=== PATIENT | male | born 1950 | race African-American/Black ===

== ENCOUNTER 2016-07-18 14:37 | Inpatient (IN) | payer OTHER ==
[2016-07-18 16:05] VITALS: BMI 22.9
--- NOTE | 2016-07-18 18:50 | HP ---
CIWA Score - CIWA Score Nausea/Vomitin Muscle Tremors: 4-Moderate,w/Arms Extend Anxiety: 4-Mod. Anxious/Guarded Agitation: 4-Moderately Restless Paroxysmal Sweats: 2 Orientation: 1-Uncertain about Date Tacttile Disturbances: 0-None Auditory Disturbances: 0-None Visual Disturbances: 0-None Headache: 3-Moderate CIWA-Ar Total Score: 20 Admission ROS BHS - HPI Chief Complaint: WITHDRAWAL SX Allergies/Adverse Reactions: Allergies Allergy/AdvReac Type Severity Reaction Status Date / Time No Known Allergies Allergy Verified 07/18/16 17:22 History of Present Illness: 66 YEARS OLD MALE WITH LONG HISTORY OF ALCOHOL NICOTINE DEPENDENCE, HAS ASTHMA AND HYPERTENSION DENIES MENTAL ILLNESS IS ADMITTED TO DETOX Exam Limitations: No Limitations - Ebola screening Have you traveled outside of the country in the last 21 days: No Have you had contact with anyone from an Ebola affected area: No Have you been sick,other than usual withdrawal symptoms: No Do you have a fever: No - Review of Systems Constitutional: Chills, Loss of Appetite, Changes in sleep, Unintentional Wgt. Loss, Unexplained wgt Loss EENT: reports: Dental Problems (MISSING TEETH) Respiratory: reports: SOB with Exertion Cardiac: reports: No Symptoms Reported GI: reports: Nausea, Poor Appetite, Poor Fluid Intake, Vomiting, Abdominal cramping : reports: No Symptoms Reported Musculoskeletal: reports: Neck Pain (LEFT LATERAL TRUNK - FELL 4 MONTHS AGO) Integumentary: reports: No Symptoms Reported Neuro: reports: Tremors Endocrine: reports: No Symptoms Reported Hematology: reports: No Symptoms Reported Psychiatric: reports: Judgement Intact, Mood/Affect Appropiate Other Systems: Reviewed and Negative Patient History - Patient Medical History Hx Anemia: No Hx Asthma: Yes Hx Chronic Obstructive Pulmonary Disease (COPD): No Hx Cancer: No Hx Cardiac Disorders: No Hx Congestive Heart Failure: No Hx Hypertension: Yes Hx Hypercholesterolemia: No Hx Pacemaker: No HX Cerebrovascular Accident: No Hx Seizures: No Hx Dementia: No Hx Diabetes: No Hx Gastrointestinal Disorders: No Hx Liver Disease: No Hx Genitourinary Disorders: No Hx Sexually Transmitted Disorders: No Hx Renal Disease (ESRD): No Hx Thyroid Disease: No Hx Human Immunodeficiency Virus (HIV): No Hx Hepatitis C: No Hx Depression: No Hx Suicide Attempt: No Hx Bipolar Disorder: No Hx Schizophrenia: No - Patient Surgical History Past Surgical History: Yes Hx Neurologic Surgery: No Hx Cataract Extraction: No Hx Cardiac Surgery: No Hx Lung Surgery: No Hx Breast Surgery: No Hx Breast Biopsy: No Hx Abdominal Surgery: No Hx Appendectomy: No Hx Cholecystectomy: No Hx Genitourinary Surgery: No Hx Orthopedic Surgery: Yes (RIGHT HIP 2012) Anesthesia Reaction: No - PPD History Previous Implant?: Yes Documented Results: Negative w/o proof Implanted On Prior R Admission?: No PPD to be Administered?: Yes - Smoking Cessation Smoking history: Current every day smoker Have you smoked in the past 12 months: Yes Aproximately how many cigarettes per day: 20 Cigars Per Day: 0 Hx Chewing Tobacco Use: No Initiated information on smoking cessation: Yes 'Breaking Loose' booklet given: 07/18/16 - Substance & Tx. History Hx Alcohol Use: Yes Hx Substance Use: Yes Substance Use Type: Alcohol, Marijuana Hx Substance Use Treatment: Yes - Substances Abused Alcohol Route: Oral Frequency: Daily Amount used: LIQUOR- 4 PINTS VOLKA BEER- 1 SIX PACK Age of first use: 15 Date of Last Use: 07/18/16 Family Disease History - Family Disease History Family Disease History: [place]: Mother (), Brother (), Other: Father (), Brother Admission Physical Exam BHS - Vital Signs Vital Signs: Vital Signs - 24 hr 07/18/16 16:02 Temperature 98.1 F Pulse Rate 113 H Respiratory 18 Rate Blood Pressure 124/74 - Physical General Appearance: Yes: Appropriately Dressed, Moderate Distress, Thin ( REFUSES ENSURE), Tremorous, Irritable, Sweating, Anxious HEENTM: Yes: Hearing grossly Normal, Normal ENT Inspection, Normocephalic, Normal Voice Respiratory: Yes: Chest Non-Tender, Lungs Clear, Normal Breath Sounds, No Respiratory Distress, No Accessory Muscle Use Neck: Yes: Supple, Trachea in good position Breast: Yes: Breasts Symetrical Cardiology: Yes: Regular Rhythm, S1, S2, Tachycardia Abdominal: Yes: Non Tender, Soft Genitourinary: Yes: Within Normal Limits Back: Yes: Normal Inspection Musculoskeletal: Yes: full range of Motion, Gait Steady (CANE), Back pain Extremities: Yes: Normal Range of Motion, Non-Tender, Tremors Neurological: Yes: Alert, Motor Strength 5/5 (CANE), Normal Mood/Affect, Normal Response Integumentary: Yes: Warm Lymphatic: Yes: Within Normal Limits - Diagnostic (1) Alcohol dependence with uncomplicated withdrawal Current Visit: Yes Status: Acute (2) Hypertension Current Visit: Yes Status: Acute Qualifiers: Hypertension type: essential hypertension Qualified Code(s): I10 - Essential (primary) hypertension (3) Asthma Current Visit: Yes Status: Acute Qualifiers: Asthma severity: mild intermittent Asthma complication type: with status asthmaticus Qualified Code(s): J45.22 - Mild intermittent asthma with status asthmaticus (4) Tachycardia Current Visit: Yes Status: Acute Comment: ALCOHOL WITHDRAWAL (5) Nicotine dependence Current Visit: Yes Status: Acute Qualifiers: Nicotine product type: cigarettes Substance use status: in withdrawal Qualified Code(s): F17.213 - Nicotine dependence, cigarettes, with withdrawal (6) GERD (gastroesophageal reflux disease) Current Visit: Yes Status: Acute Qualifiers: Esophagitis presence: without esophagitis Qualified Code(s): K21.9 - Gastro-esophageal reflux disease without esophagitis (7) Use of cane as ambulatory aid Current Visit: Yes Status: Chronic (8) Status post right hip replacement Current Visit: Yes Status: Resolved Cleared for Admission BHS - Detox or Rehab [facility] Level of Care: Medically Managed Detox Regimen/Protocol: Librium [facility] Breath Alcohol Content Breath Alcohol Content: 0 Urine Drug Screen - Results Drug Screen Negative: No Urine Drug Screen Results: THC-Marijuana, TCA-Tricyclic Antidepress
[2016-07-18] MEDS ORDERED: guaiFENesin/D-METHORPHAN HB 10 ML UNIT-DOSE CUPS PO PRN (18:57)
[2016-07-18] MEDS ORDERED: NICOTINE POLACRILEX 4 MG GUM BUC PRN (18:57)
[2016-07-18] MEDS ORDERED: chlordiazePOXIDE HCL 25 MG CAPSULE PO PRN (18:57)
[2016-07-18] MEDS ORDERED: chlordiazePOXIDE HCL 25 MG CAPSULE PO ONE (18:57)
[2016-07-18] MEDS ORDERED: MAGNESIUM HYDROX 2400MG/30ML ORAL SUSPENSION 30 ML CUP PO PRN (18:57)
[2016-07-18] MEDS ORDERED: MAG HYDROX/AL HYDROX/SIMETH 30 ML UNIT-DOSE CUP PO PRN (18:57)
[2016-07-18] MEDS ORDERED: MAGNESIUM CITRATE 300 ML BOTTLE PO PRN (18:57)
[2016-07-18] MEDS ORDERED: hydrOXYzine PAMOATE 50 MG CAPSULE (FP) PO PRN (18:57)
[2016-07-18] MEDS ORDERED: LOPERAMIDE HCL 2 MG CAPSULE PO PRN (18:57)
[2016-07-18] MEDS ORDERED: ACETAMINOPHEN 325 MG TABLET (FP) PO PRN (18:57)
[2016-07-18] MEDS ORDERED: P-EPHED 60MG/TRIPROLIDI 2.5MG TABLET PO PRN (18:57)
[2016-07-18] MEDS ORDERED: MENTHOL/PHENOL 1 EACH UD MM PRN (18:57)
[2016-07-18] MEDS ORDERED: ALBUTEROL SO4 6.7 GM HFA INHALER IH PRN (18:59)
[2016-07-18] MEDS: LISINOPRIL 20 MG TABLET (FP) PO SCH (20:17)
[2016-07-18] MEDS: THIAMINE HCL 100 MG TABLET (FP) PO SCH (22:47)
[2016-07-18] MEDS: RANITIDINE HCL 150 MG TABLET (FP) PO SCH (22:47)
[2016-07-18] MEDS: chlordiazePOXIDE HCL 25 MG CAPSULE PO SCH (22:59)
--- NOTE | 2016-07-19 | PN ---
S Progress Note Note: Last Vital Signs Temp Pulse Resp BP Pulse Ox 96.7 F L 133 H 20 88/66 100 07/18/16 22:29 07/18/16 22:30 07/18/16 22:29 07/18/16 22:30 Pt. is alert and oriented x 3; self-directing. He c/o of dizziness. He was encouraged to increase his fluid intake and educated on fall precautions. He was advised to stand up slowing when getting out of bed; pt. verbalized understanding. Pt. ordered a cane for ambulation. Will continue to monitor.
--- NOTE | 2016-07-19 01:37 | PN ---
[facility] Progress Note Note: Vital Signs 07/18/16 07/18/16 07/19/16 22:29 22:30 01:04 Temperature 96.7 F L Pulse Rate 122 H 133 H 121 H Respiratory 20 16 Rate Blood Pressure 117/86 88/66 99/66 PT'S CONTINUES TO BE TACHYCARDIC. PT. APPEARS CONFUSED AND ATTEMPTED TO GET OUT OF BED AFTER HE WAS INSTRUCTED NOT TO. HE IS UNSTEADY ON HIS FEET AND C/O OF DIZZINESS. PT. STARTED ON 1L ON N/S IV. PT. TO BE TRANSFERRED TO ER FOR FURTHER EVALUATION. REPORT GIVEN TO DR. KAUFFMAN.
[2016-07-19 04:42] LABS: URINE APPEARANCE CLEAR; URINE BILIRUBIN NEGATIVE (NEGATIVE); URINE COLOR YELLOW; URINE GLUCOSE (UA) 1+ (NEGATIVE); URINE KETONE TRACE (NEGATIVE); URINE LEUK ESTERASE NEGATIVE (NEGATIVE); URINE NITRITE NEGATIVE (NEGATIVE); URINE UROBILINOGEN NEGATIVE E.U./dl (0.2-1.0)
[2016-07-19 04:54] LABS: URINE BLOOD 1+ (NEGATIVE); URINE PROTEIN 2+ (NEGATIVE)
[2016-07-19 05:06] LABS: URINE BACTERIA RARE /hpf (NONE SEEN); URINE HYALINE CAST 34 /lpf; URINE MUCUS RARE; URINE RBC 2 /hpf (0-3); URINE WBC 2 /hpf (3-5)
[2016-07-19] MEDS: chlordiazePOXIDE HCL 25 MG CAPSULE PO SCH ×4 (06:19→22:42)
[2016-07-19] MEDS: LISINOPRIL 20 MG TABLET (FP) PO SCH (10:08)
[2016-07-19] MEDS: PRENATAL VITAMINS W/ FOLIC ACID TABLET (FP) PO SCH (10:08)
[2016-07-19] MEDS: RANITIDINE HCL 150 MG TABLET (FP) PO SCH ×2 (10:08→22:35)
[2016-07-19] MEDS: NICOTINE 21 MG/24 HOURS TOPICAL PATCH TD SCH (10:08)
[2016-07-19 10:11] LABS: MCH 31.7 pg (25.7-33.7); MCHC 33.5 g/dl (32.0-35.9); MEAN CELL VOLUME 94.5 fl (80-96); PLATELET COUNT 122 K/MM3 (134-434); RDW 15.2 % (11.9-15.9); WHITE BLOOD COUNT 5.9 K/mm3 (4.0-10.0)
--- NOTE | 2016-07-19 10:15 | PN ---
S CIWA - CIWA Score Nausea/Vomitin-No Nausea/No Vomiting Muscle Tremors: 5 Anxiety: 4-Mod. Anxious/Guarded Agitation: 4-Moderately Restless Paroxysmal Sweats: 3 Orientation: 0-Oriented Tacttile Disturbances: 1-Very Mild Itch/Numbness Auditory Disturbances: 0-None Visual Disturbances: 1-Very Mild Sensitivity Headache: 0-None Present CIWA-Ar Total Score: 18 BHS Progress Note (SOAP) Subjective: Sweating,anxiety,tremors,restless,interrupted sleep,mild visual disturbances. Objective: 07/19/16 10:14 Vital Signs - 8 hr 07/19/16 07/19/16 05:57 09:28 Temperature 97 F L 98.6 F Pulse Rate 106 H 109 H Respiratory 18 20 Rate Blood Pressure 101/68 96/59 Laboratory Tests 07/19/16 01:00 Urine Color Yellow Urine Appearance Clear Urine pH 6.0 Ur Specific [place] 1.012 Urine Protein 2+ H Urine Glucose (UA) 1+ H Urine Ketones Trace H Urine Blood 1+ H Urine Nitrite Negative Urine Bilirubin Negative Urine Urobilinogen Negative Ur Leukocyte Esterase Negative Urine RBC 2 Urine WBC 2 Ur Epithelial Cells Rare Urine Bacteria Rare Hyaline Casts 34 Urine Mucus Rare U/A noted Assessment: 07/19/16 10:15 Withdrawal sx. Plan: Continue detox
[2016-07-19 10:33] LABS: ALBUMIN 3.6 g/dl (3.4-5.0); CALCIUM 8.8 mg/dL (8.5-10.1); CREATININE 2.3 mg/dL (0.7-1.3); TOT PROT 7.5 g/dl (6.4-8.2)
[2016-07-19] MEDS: POTASSIUM CHLORIDE TABS 20 MEQ TABLET.ER (FP) PO SCH ×2 (12:18→22:35)
--- NOTE | 2016-07-19 13:43 | EKG ---
Test Reason : Blood Pressure : / mmHG Vent. Rate : 107 BPM Atrial Rate : 107 BPM P-R Int : 122 ms QRS Dur : 080 ms QT Int : 444 ms P-R-T Axes : 072 -12 001 degrees QTc Int : 592 ms SINUS TACHYCARDIA BIATRIAL ENLARGEMENT NONSPECIFIC ST ABNORMALITY PROLONGED QT ABNORMAL ECG NO PREVIOUS ECGS AVAILABLE Confirmed by DARIANA ANDREA MD ([id number]) on 07/19/2016 1:42:45 PM Referred By: Confirmed By:DARIANA ANDREA MD
[2016-07-19] MEDS ORDERED: chlordiazePOXIDE HCL 25 MG CAPSULE PO ONE (14:00)
--- NOTE | 2016-07-19 18:21 | PN ---
S Progress Note Note: RECEIVED NURSE INFORMED, PATIENT REFUSES LIBRIUM 50 MG X 1 ENCOURAGE ORAL FLUID CONTINUE DETOX
[2016-07-19] MEDS: THIAMINE HCL 100 MG TABLET (FP) PO SCH (22:34)
[2016-07-20] MEDS: diphenhydrAMINE HCL 50 MG CAPSULE PO PRN ×2 (01:28→21:57)
[2016-07-20] MEDS: chlordiazePOXIDE HCL 25 MG CAPSULE PO SCH ×3 (05:48→17:44)
[2016-07-20] MEDS: NICOTINE 21 MG/24 HOURS TOPICAL PATCH TD SCH (10:55)
[2016-07-20] MEDS: RANITIDINE HCL 150 MG TABLET (FP) PO SCH ×2 (10:55→21:57)
[2016-07-20] MEDS: PRENATAL VITAMINS W/ FOLIC ACID TABLET (FP) PO SCH (10:55)
[2016-07-20] MEDS: POTASSIUM CHLORIDE TABS 20 MEQ TABLET.ER (FP) PO SCH ×2 (10:55→21:57)
--- NOTE | 2016-07-20 16:43 | PN ---
[facility] CIWA - CIWA Score Nausea/Vomitin-No Nausea/No Vomiting Muscle Tremors: 4-Moderate,w/Arms Extend Anxiety: 3 Agitation: 3 Paroxysmal Sweats: 3 Orientation: 0-Oriented Tacttile Disturbances: 0-None Auditory Disturbances: 0-None Visual Disturbances: 0-None Headache: 0-None Present CIWA-Ar Total Score: 13 S Progress Note (SOAP) Subjective: Anxiety,tremors,sweating,interrupted sleep,restless Objective: 07/20/16 16:41 Vital Signs - 8 hr 07/20/16 07/20/16 09:26 13:08 Temperature 97.3 F L 96.4 F L Pulse Rate 108 H 103 H Respiratory 20 18 Rate Blood Pressure 70/47 94/64 Laboratory Tests 07/19/16 07/19/16 07/19/16 01:00 07:00 07:00 WBC 5.9 RBC 4.71 Hgb 14.9 Hct 44.5 MCV 94.5 MCHC 33.5 RDW 15.2 Plt Count 122 L MPV 8.0 Sodium 135 L Potassium 2.9 L* Chloride 95 L Carbon Dioxide 22 Anion Gap 18 H BUN 18 Creatinine 2.3 H Creat Clearance w eGFR 28.68 Random Glucose 114 H Calcium 8.8 Total Bilirubin 1.0 AST 44 H ALT 18 Alkaline Phosphatase 92 Total Protein 7.5 Albumin 3.6 Urine Color Yellow Urine Appearance Clear Urine pH 6.0 Ur Specific [place] 1.012 Urine Protein 2+ H Urine Glucose (UA) 1+ H Urine Ketones Trace H Urine Blood 1+ H Urine Nitrite Negative Urine Bilirubin Negative Urine Urobilinogen Negative Ur Leukocyte Esterase Negative Urine RBC 2 Urine WBC 2 Ur Epithelial Cells Rare Urine Bacteria Rare Hyaline Casts 34 Urine Mucus Rare RPR Titer 07/19/16 07:00 WBC RBC Hgb Hct MCV MCHC RDW Plt Count MPV Sodium Potassium Chloride Carbon Dioxide Anion Gap BUN Creatinine Creat Clearance w eGFR Random Glucose Calcium Total Bilirubin AST ALT Alkaline Phosphatase Total Protein Albumin Urine Color Urine Appearance Urine pH Ur Specific [place] Urine Protein Urine Glucose (UA) Urine Ketones Urine Blood Urine Nitrite Urine Bilirubin Urine Urobilinogen Ur Leukocyte Esterase Urine RBC Urine WBC Ur Epithelial Cells Urine Bacteria Hyaline Casts Urine Mucus RPR Titer Nonreactive labs noted,pt. is on k-dur,labs will be repeated Assessment: 07/20/16 16:42 Withdrawal sx. Hypokalemia Plan: Continue detox
[2016-07-20] MEDS: THIAMINE HCL 100 MG TABLET (FP) PO SCH (21:57)
[2016-07-20] MEDS: chlordiazePOXIDE 5 MG CAPSULE PO SCH (22:04)
--- NOTE | 2016-07-20 23:44 | PN ---
[facility] Progress Note Note: ASKED TO SEE CLIENT FOR SWOLLEN LIPS. CLIENT STATES HE FELT SOME TINGLING ON HIS LIPS AND THEN THEY WERE SWOLLEN. WAS DRINKING LEMONADE PRIOR TO INCIDENT.DENIES, SOB, C.P. WHEEZING, ITCHING, OR TIGHTNESS OF CHEST CLIENT SEEN LYING IN BED NAD FACE/ LIPS SWOLLEN PHARYNX MMM TONSILS NL PATENT AIRWAY CHEST CTAB O2 SAT 98 RA CARDIAC RRR Vital Signs - 24 hr 07/20/16 07/20/16 07/20/16 09:26 13:08 17:19 Temperature 97.3 F L 96.4 F L 97.5 F L Pulse Rate 108 H 103 H 105 H Respiratory 20 18 16 Rate Blood Pressure 70/47 94/64 124/75 07/20/16 07/21/16 07/21/16 22:07 00:30 03:50 Temperature 96.9 F L Pulse Rate 110 H Respiratory 20 20 18 Rate Blood Pressure 102/65 07/21/16 06:29 Temperature 97.9 F Pulse Rate 114 H Respiratory 18 Rate Blood Pressure 82/52 ALLERGIC RXN P- VS W/ 02 SAT BENADRYL 50 MG PO STAT BENADRYL 25 MG PO 25 MG Q 6 H X4 DOSES MONITOR CLOSELY FOR WORSENING S/SX'S NOTE: SEEN THIS MORNING AMBULATING ON UNIT NAD SWELLING HAS SUBSIDED SIGNIFICANTLY. SLIGHT RESIDUAL SWELLING TO LIPS CONT TO MONITOR CLOSELY CONT BENADRYL
[2016-07-21] MEDS ORDERED: diphenhydrAMINE HCL 25 MG CAPSULE (FP) PO SCH (06:00)
[2016-07-21] MEDS: chlordiazePOXIDE 5 MG CAPSULE PO SCH ×3 (06:16→17:38)
[2016-07-21] MEDS: diphenhydrAMINE HCL 25 MG CAPSULE (FP) PO SCH ×3 (07:58→19:47)
[2016-07-21] MEDS: PRENATAL VITAMINS W/ FOLIC ACID TABLET (FP) PO SCH (10:10)
[2016-07-21] MEDS: POTASSIUM CHLORIDE TABS 20 MEQ TABLET.ER (FP) PO SCH ×2 (10:10→22:41)
[2016-07-21] MEDS: RANITIDINE HCL 150 MG TABLET (FP) PO SCH ×2 (10:10→22:41)
[2016-07-21] MEDS: NICOTINE 21 MG/24 HOURS TOPICAL PATCH TD SCH (10:11)
[2016-07-21 10:19] LABS: MCH 31.7 pg (25.7-33.7); MCHC 33.2 g/dl (32.0-35.9); MEAN CELL VOLUME 95.5 fl (80-96); MEAN PLT VOLUME 9.1 fl (7.5-11.1); PLATELET COUNT 112 K/MM3 (134-434); RDW 14.9 % (11.9-15.9); WHITE BLOOD COUNT 6.8 K/mm3 (4.0-10.0)
--- NOTE | 2016-07-21 10:31 | PN ---
S Progress Note (SOAP) Subjective: ALERT,IRRITABLE,SWELLING BOTH FACIAL AREA,NO SOB,STATED MAY BE ALLERGIC TO LEMONAIDE Objective: 07/21/16 10:30 Vital Signs Temperature 95.8 F L 07/21/16 09:09 Pulse Rate 98 H 07/21/16 09:09 Respiratory Rate 20 07/21/16 09:09 Blood Pressure 115/66 07/21/16 09:09 O2 Sat by Pulse Oximetry (%) Laboratory Last Values WBC 6.8 K/mm3 (4.0-10.0) 07/21/16 07:00 RBC 4.25 M/mm3 (4.00-5.60) 07/21/16 07:00 Hgb 13.5 GM/dL (11.7-16.9) 07/21/16 07:00 Hct 40.6 % (35.4-49) 07/21/16 07:00 MCV 95.5 fl (80-96) 07/21/16 07:00 MCHC 33.2 g/dl (32.0-35.9) 07/21/16 07:00 RDW 14.9 % (11.9-15.9) 07/21/16 07:00 Plt Count 112 K/MM3 (134-434) L 07/21/16 07:00 MPV 9.1 fl (7.5-11.1) D 07/21/16 07:00 Sodium 135 mmol/L (136-145) L 07/19/16 07:00 Potassium 2.9 mmol/L (3.5-5.1) L* 07/19/16 07:00 Chloride 95 mmol/L (98-107) L 07/19/16 07:00 Carbon Dioxide 22 mmol/L (21-32) 07/19/16 07:00 Anion Gap 18 (8-16) H 07/19/16 07:00 BUN 18 mg/dL (7-18) 07/19/16 07:00 Creatinine 2.3 mg/dL (0.7-1.3) H 07/19/16 07:00 Creat Clearance w eGFR 28.68 (>60) 07/19/16 07:00 Random Glucose 114 mg/dL (74-106) H 07/19/16 07:00 Calcium 8.8 mg/dL (8.5-10.1) 07/19/16 07:00 Total Bilirubin 1.0 mg/dL (0.2-1.0) 07/19/16 07:00 AST 44 U/L (15-37) H 07/19/16 07:00 ALT 18 U/L (12-78) 07/19/16 07:00 Alkaline Phosphatase 92 U/L (45-117) 07/19/16 07:00 Total Protein 7.5 g/dl (6.4-8.2) 07/19/16 07:00 Albumin 3.6 g/dl (3.4-5.0) 07/19/16 07:00 Urine Color Yellow 07/19/16 01:00 Urine Appearance Clear 07/19/16 01:00 Urine pH 6.0 (5.0-8.0) 07/19/16 01:00 Ur Specific [place] 1.012 (1.001-1.035) 07/19/16 01:00 Urine Protein 2+ (NEGATIVE) H 07/19/16 01:00 Urine Glucose (UA) 1+ (NEGATIVE) H 07/19/16 01:00 Urine Ketones Trace (NEGATIVE) H 07/19/16 01:00 Urine Blood 1+ (NEGATIVE) H 07/19/16 01:00 Urine Nitrite Negative (NEGATIVE) 07/19/16 01:00 Urine Bilirubin Negative (NEGATIVE) 07/19/16 01:00 Urine Urobilinogen Negative E.U./dl (0.2-1.0) 07/19/16 01:00 Ur Leukocyte Esterase Negative (NEGATIVE) 07/19/16 01:00 Urine RBC 2 /hpf (0-3) 07/19/16 01:00 Urine WBC 2 /hpf (3-5) 07/19/16 01:00 Ur Epithelial Cells Rare /hpf (FEW) 07/19/16 01:00 Urine Bacteria Rare /hpf (NONE SEEN) 07/19/16 01:00 Hyaline Casts 34 /lpf 07/19/16 01:00 Urine Mucus Rare 07/19/16 01:00 RPR Titer Nonreactive (NONREACTIVE) 07/19/16 07:00 07/21/16 10:36 REPEAT CMP,AMMONIA LEVEL PENDING 07/21/16 10:37 Assessment: WITHDRAWAL SYMPTOM Plan: CONTINUE DETOX,CONTINUE K DUR 20 MEQ PO BID
[2016-07-21 10:47] LABS: ALBUMIN 3.5 g/dl (3.4-5.0); BILIRUBIN,TOTAL 0.8 mg/dL (0.2-1.0); CREATININE 1.4 mg/dL (0.7-1.3); TOT PROT 7.3 g/dl (6.4-8.2)
[2016-07-21] MEDS: chlordiazePOXIDE HCL 10 MG CAPSULE PO SCH (22:41)
[2016-07-21] MEDS: THIAMINE HCL 100 MG TABLET (FP) PO SCH (22:41)
[2016-07-22] MEDS: chlordiazePOXIDE HCL 10 MG CAPSULE PO SCH (05:21)
[2016-07-22 06:26] VITALS: BP 124/73; PULSE 91; TEMP 96
--- NOTE | 2016-07-22 09:07 | DS ---
[facility] Detox Discharge Summary Admission Date: 07/18/16 Discharge Date: 07/22/16 - History Present History: Alcohol Dependence Additional Comments: DETOX COMPLETED. ALERT O X 3. NAD. VSS. PT STATES DISCHARGING TO "HOME TO AND 5 CHILDREN WITH [facility]". STATES HIS PRIMARY CARE PROVIDER AT [facility]. Pertinent Past History: ASTHMA HTN GERD S/P RIGHT HIP REPLACEMENT USE OF CANE AMBULATORY AID - Physical Exam Results Vital Signs: Vital Signs Temperature 96 F L 07/22/16 06:25 Pulse Rate 91 H 07/22/16 06:25 Respiratory Rate 16 07/22/16 06:25 Blood Pressure 124/73 07/22/16 06:25 O2 Sat by Pulse Oximetry (%) Pertinent Admission Physical Exam Findings: WITHDRAWAL SX Laboratory Last Values WBC 6.8 K/mm3 (4.0-10.0) 07/21/16 07:00 RBC 4.25 M/mm3 (4.00-5.60) 07/21/16 07:00 Hgb 13.5 GM/dL (11.7-16.9) 07/21/16 07:00 Hct 40.6 % (35.4-49) 07/21/16 07:00 MCV 95.5 fl (80-96) 07/21/16 07:00 MCHC 33.2 g/dl (32.0-35.9) 07/21/16 07:00 RDW 14.9 % (11.9-15.9) 07/21/16 07:00 Plt Count 112 K/MM3 (134-434) L 07/21/16 07:00 MPV 9.1 fl (7.5-11.1) D 07/21/16 07:00 Sodium 134 mmol/L (136-145) L 07/21/16 07:00 Potassium 3.7 mmol/L (3.5-5.1) D 07/21/16 07:00 Chloride 96 mmol/L (98-107) L 07/21/16 07:00 Carbon Dioxide 25 mmol/L (21-32) 07/21/16 07:00 Anion Gap 13 (8-16) 07/21/16 07:00 BUN 23 mg/dL (7-18) H D 07/21/16 07:00 Creatinine 1.4 mg/dL (0.7-1.3) H D 07/21/16 07:00 Creat Clearance w eGFR 50.86 (>60) 07/21/16 07:00 Random Glucose 126 mg/dL (74-106) H 07/21/16 07:00 Calcium 9.0 mg/dL (8.5-10.1) 07/21/16 07:00 Total Bilirubin 0.8 mg/dL (0.2-1.0) 07/21/16 07:00 AST 20 U/L (15-37) D 07/21/16 07:00 ALT 14 U/L (12-78) D 07/21/16 07:00 Alkaline Phosphatase 86 U/L (45-117) 07/21/16 07:00 Ammonia 23.79 umol/L (11-32) 07/21/16 07:00 Total Protein 7.3 g/dl (6.4-8.2) 07/21/16 07:00 Albumin 3.5 g/dl (3.4-5.0) 07/21/16 07:00 Urine Color Yellow 07/19/16 01:00 Urine Appearance Clear 07/19/16 01:00 Urine pH 6.0 (5.0-8.0) 07/19/16 01:00 Ur Specific [place] 1.012 (1.001-1.035) 07/19/16 01:00 Urine Protein 2+ (NEGATIVE) H 07/19/16 01:00 Urine Glucose (UA) 1+ (NEGATIVE) H 07/19/16 01:00 Urine Ketones Trace (NEGATIVE) H 07/19/16 01:00 Urine Blood 1+ (NEGATIVE) H 07/19/16 01:00 Urine Nitrite Negative (NEGATIVE) 07/19/16 01:00 Urine Bilirubin Negative (NEGATIVE) 07/19/16 01:00 Urine Urobilinogen Negative E.U./dl (0.2-1.0) 07/19/16 01:00 Ur Leukocyte Esterase Negative (NEGATIVE) 07/19/16 01:00 Urine RBC 2 /hpf (0-3) 07/19/16 01:00 Urine WBC 2 /hpf (3-5) 07/19/16 01:00 Ur Epithelial Cells Rare /hpf (FEW) 07/19/16 01:00 Urine Bacteria Rare /hpf (NONE SEEN) 07/19/16 01:00 Hyaline Casts 34 /lpf 07/19/16 01:00 Urine Mucus Rare 07/19/16 01:00 RPR Titer Nonreactive (NONREACTIVE) 07/19/16 07:00 - Treatment Hospital Course: Detox Protocol Followed, Detoxed Safely, Responded well, Discharged Condition Good - Medication Discharge Medications: Ambulatory Orders Albuterol Sulfate Inhaler - [Ventolin Hfa Inhaler -] 1 - 2 inh PO QID 07/18/16 Lisinopril [Prinivil -] 20 mg PO DAILY 07/18/16 - Diagnosis (1) Alcohol dependence with uncomplicated withdrawal Status: Acute (2) Asthma Status: Chronic Qualifiers: Asthma severity: mild intermittent Asthma complication type: with status asthmaticus Qualified Code(s): J45.22 - Mild intermittent asthma with status asthmaticus (3) GERD (gastroesophageal reflux disease) Status: Chronic Qualifiers: Esophagitis presence: without esophagitis Qualified Code(s): K21.9 - Gastro-esophageal reflux disease without esophagitis (4) Hypertension Status: Chronic Qualifiers: Hypertension type: essential hypertension Qualified Code(s): I10 - Essential (primary) hypertension (5) Nicotine dependence Status: Acute Qualifiers: Nicotine product type: cigarettes Substance use status: in withdrawal Qualified Code(s): F17.213 - Nicotine dependence, cigarettes, with withdrawal (6) Tachycardia Status: Acute (7) Use of cane as ambulatory aid Status: Chronic (8) Status post right hip replacement Status: Resolved (9) Dehydration Status: Acute (10) Hypotension Status: Acute Qualifiers: Hypotension type: unspecified hypotension type Qualified Code(s): I95.9 - Hypotension, unspecified - AMA Did Patient Leave Against Medical Advice: No
[2016-07-22] MEDS: PRENATAL VITAMINS W/ FOLIC ACID TABLET (FP) PO SCH (09:08)
[2016-07-22] MEDS: POTASSIUM CHLORIDE TABS 20 MEQ TABLET.ER (FP) PO SCH (09:08)
[2016-07-22] MEDS: RANITIDINE HCL 150 MG TABLET (FP) PO SCH (09:08)
[2016-07-22] MEDS: NICOTINE 21 MG/24 HOURS TOPICAL PATCH TD SCH (09:09)
== END 2016-07-22 09:13 | disposition home or self-care (01) | DRG 897 ==
LOC: YASAS 14:37 → Y3N 17:42
PROVIDERS: ADMIT Internal Medicine; ATTEND Internal Medicine
PROC: HZ2ZZZZ Detoxification Services for Substance Abuse Treatment (ICD-10-PCS; principal; 2016-07-18)
DX: F10.230 Alcohol dependence with withdrawal, uncomplicated (principal); J45.22 Mild intermittent asthma with status asthmaticus; F17.210 Nicotine dependence, cigarettes, uncomplicated; K21.9 Gastro-esophageal reflux disease without esophagitis; I10 Essential (primary) hypertension; R00.0 Tachycardia, unspecified; R26.2 Difficulty in walking, not elsewhere classified; I95.9 Hypotension, unspecified; E87.6 Hypokalemia; R22.0 Localized swelling, mass and lump, head; R41.0 Disorientation, unspecified; E86.0 Dehydration; R42 Dizziness and giddiness; Z96.641 Presence of right artificial hip joint
CPT/HCPCS: 36415; 80053; 81003; 81015; 82140; 85027; 86593; 93005; 93010

== ENCOUNTER 2016-07-19 02:01 | Emergency (ER) | payer OTHER ==
[2016-07-19 02:10] VITALS: BMI 21.7
--- NOTE | 2016-07-19 04:11 | PDOC ---
History of Present Illness - History of Present Illness Initial Comments: 07/19/16 04:12 Patient is a 66 year old male with significant medical hx of ETOH abuse, asthma , and HTN who has been sent to the ED from [facility] for hypotension and tachycardia. The patient states that he spent this weekend heavily drinking alcohol without any water. He then went to detox yesterday. While at detox the patient felt lightheaded and fell, landing on his hands and knees. The patient endorses dehydration. Denies fever, chills. <Sierra Esparza - Last Filed: 07/19/16 04:12> - General History Source: Patient <ChiragDominik Brijesh - Last Filed: 07/19/16 05:16> - General Chief Complaint: Blood Pressure Problem Stated Complaint: BLOOD PRESSURE PROBLEM Past History <Sierra Esparza - Last Filed: 07/19/16 04:12> - Past Medical History Anemia: No Asthma: Yes Cancer: No Cardiac Disorders: No CVA: No COPD: No CHF: No Dementia: No Diabetes: No GI Disorders: No Disorders: No HTN: Yes Hypercholesterolemia: No Kidney Stones: No Liver Disease: No Suicide Attempt (Hx): No Seizures: No Thyroid Disease: No - Surgical History Abdominal Surgery: No Appendectomy: No Cardiac Surgery: No Cholecystectomy: No Lung Surgery: No Neurologic Surgery: No Orthopedic Surgery: Yes (RIGHT HIP 2012) - Reproductive History Testicular Surgery: No - Psycho/Social/Smoking Cessation Hx Anxiety: No Suicidal Ideation: No Smoking History: Unknown if ever smoked Have you smoked in the past 12 months: Yes Number of Cigarettes Smoked Daily: 20 Cigars Per Day: 0 Information on smoking cessation initiated: No 'Breaking Loose' booklet given: 07/18/16 Hx Alcohol Use: Yes Drug/Substance Use Hx: Yes Substance Use Type: Alcohol, Marijuana Hx Substance Use Treatment: Yes <ChiragDominik Brijesh - Last Filed: 07/19/16 05:16> - Past Medical History Allergies/Adverse Reactions: Allergies Allergy/AdvReac Type Severity Reaction Status Date / Time No Known Allergies Allergy Verified 07/19/16 02:06 Home Medications: Ambulatory Orders Albuterol Sulfate Inhaler - [Ventolin Hfa Inhaler -] 1 - 2 inh PO QID 07/18/16 Lisinopril [Prinivil -] 20 mg PO DAILY 07/18/16 Review of Systems - Review of Systems Comments:: 07/19/16 04:12 GENERAL/CONSTITUTIONAL: Dehydration. No fever or chills. No weakness. HEAD, EYES, EARS, NOSE AND THROAT: No change in vision. No ear pain or discharge. No sore throat. CARDIOVASCULAR: Lightheadedness. No chest pain or shortness of breath. RESPIRATORY: No cough, wheezing, or hemoptysis. GASTROINTESTINAL: No nausea, vomiting, diarrhea or constipation. GENITOURINARY: No dysuria, frequency, or change in urination. MUSCULOSKELETAL: No joint or muscle swelling or pain. No neck or back pain. SKIN: No rash NEUROLOGIC: No headache, vertigo, loss of consciousness, or change in strength/ sensation. <Sierra Esparza - Last Filed: 07/19/16 04:12> *Physical Exam - Vital Signs Last Vital Signs Temp Pulse Resp BP Pulse Ox 102 H 14 108/68 99 07/19/16 02:06 07/19/16 02:06 07/19/16 02:06 07/19/16 02:06 - Physical Exam Comments: 07/19/16 04:13 GENERAL: Awake, alert, and fully oriented, in no acute distress. Disheveled HEAD: No signs of trauma EYES: PERRLA, EOMI, sclera anicteric, conjunctiva clear ENT: Edentulous. Auricles normal inspection, hearing grossly normal, nares patent, oropharynx clear without exudates. Moist mucosa NECK: Normal ROM, supple, no lymphadenopathy, JVD, or masses LUNGS: Breath sounds equal, clear to auscultation bilaterally. No wheezes, and no crackles HEART: Regular rate and rhythm, normal S1 and S2, no murmurs, rubs or gallops ABDOMEN: Soft, nontender, normoactive bowel sounds. No guarding, no rebound. No masses EXTREMITIES: Normal range of motion, no edema. No clubbing or cyanosis. No cords, erythema, or tenderness NEUROLOGICAL: Cranial nerves II through XII grossly intact. Normal speech, normal gait SKIN: Warm, Dry, normal turgor, no rashes or lesions noted. ENDOCRINE: No increased thirst. No abnormal weight change. HEMATOLOGIC/LYMPHATIC: No anemia, easy bleeding, or history of blood clots. ALLERGIC/IMMUNOLOGIC: No hives or skin allergy. <Sierra Esparza - Last Filed: 07/19/16 04:12> - Vital Signs Last Vital Signs Temp Pulse Resp BP Pulse Ox 102 H 14 108/68 99 07/19/16 02:06 07/19/16 02:06 07/19/16 02:06 07/19/16 02:06 <Dominik Beard - Last Filed: 07/19/16 05:16> Medical Decision Making - Medical Decision Making 07/19/16 05:10 07/19/16 05:11 This is a 66yo m with fluid responsive hypotension. He admits to not eating or drinking adequately. He is discharged at this time. <Domniik Beard - Last Filed: 07/19/16 05:16> *DC/Admit/Observation/Transfer - Attestations Scribe Attestion: 07/19/16 04:14 Documentation prepared by Sierra Esparza, acting as medical office coordinator for Dominik Beard MD. <Sierra Esparza - Last Filed: 07/19/16 04:12> - Discharge Dispostion Admit: No Decision to Admit order Date/Time: 07/19/16 05:07 - Attestations Physician Attestion: 07/19/16 05:10 I, Dr. Dominik Beard MD, attest that this document has been prepared under my direction and personally reviewed by me in its entirety. I further attest, that it accurately reflects all work, treatment, procedures and medical decision -making performed by me. <Dominik Beard - Last Filed: 07/19/16 05:16> Diagnosis at time of Disposition: Dehydration Hypotension Qualifiers: Hypotension type: unspecified hypotension type Qualified Code(s): I95.9 - Hypotension, unspecified - Discharge Dispostion Disposition: HOME Condition at time of disposition: Good - Patient Instructions Printed Discharge Instructions: DI for Dehydration -- Adult, DI for Hypotension Additional Instructions: Please follow up with your PMD within the next 24 hours and if there is any change otherwise in your symptoms, please return immediately to the ED. Please aggressively hydrate yourself and nutrition as tolerated.
[2016-07-19 05:02] VITALS: BP 128/78; PULSE 88
== END 2016-07-19 05:16 | disposition home or self-care (01) ==
LOC: JER 02:01
DX: E86.0 Dehydration (principal); I95.9 Hypotension, unspecified; F10.20 Alcohol dependence, uncomplicated; J45.909 Unspecified asthma, uncomplicated; I10 Essential (primary) hypertension
CPT/HCPCS: 99281-25